=== PATIENT | female | born 1960 | race Caucasian/White ===

== ENCOUNTER 2016-09-21 12:28 | Emergency (ER) | payer BC ==
[2016-09-21] MEDS ORDERED: IPRATROPIUM-ALBUTEROL 3 ML NEB INHALATION STA (13:16)
--- NOTE | 2016-09-21 13:31 | ED ---
URI HPI - General Chief Complaint: Upper Respiratory Infection Stated Complaint: Congested/SOB Time Seen by Provider: 09/21/16 13:10 Source: patient, RN notes reviewed Mode of arrival: ambulatory Limitations: no limitations - History of Present Illness Initial Comments: 55-year-old female presents EMERGENCY DEPARTMENT CHIEF COMPLAINT COUGH AND CONGESTION FOR 6 DAYS. PATIENT STATES SYMPTOMS ARE PROGRESSIVELY GETTING WORSE. SHE STATES SHE NOTICED SOME WHEEZING, CHEST CONGESTION. SHE STATES IT STARTED JUST MORE SINUS CONGESTION. PATIENT STATES SHE CONCERNED THAT SHE MAY HAVE PNEUMONIA. PATIENT DENIES FEVER STATES THAT SHE'S HAD CHILLS, NIGHT SWEATS. DENIES ANY CHEST PAIN. SHE STATES SHE HAS HAD SOME SHORTNESS OF BREATH. PATIENT HAS NO KNOWN LUNG DISORDERS. PATIENT DENIES ANY relief with [id number] cough and cold medications. - Related Data Home Medications Medication Instructions Recorded Confirmed ALPRAZolam [Xanax] 0.5 mg PO Q8H PRN 09/21/16 09/21/16 Cholecalciferol (Vitamin D3) 10,000 unit PO DAILY 09/21/16 09/21/16 [Vitamin D3] Cyclobenzaprine [Flexeril] 10 mg PO Q8H PRN 09/21/16 09/21/16 Escitalopram [Lexapro] 10 mg PO DAILY 09/21/16 09/21/16 Hydrochlorothiazide [Hydrodiuril] 25 mg PO DAILY 09/21/16 09/21/16 L.acidoph,Paracasei, B.lactis 1 cap PO DAILY 09/21/16 09/21/16 [Probiotic] Levothyroxine Sodium [Synthroid] 50 mcg PO DAILY 09/21/16 09/21/16 Levothyroxine Sodium [Synthroid] 200 mcg PO DAILY 09/21/16 09/21/16 Propranolol HCl [Inderal LA] 120 mg PO DAILY 09/21/16 09/21/16 amLODIPine [Norvasc] 10 mg PO DAILY 09/21/16 09/21/16 Previous Rx's Medication Instructions Recorded Albuterol Sulfate [Proair Hfa] 1 - 2 puff INHALATION Q4HR PRN #1 09/21/16 inhaler Levofloxacin [Levaquin] 500 mg PO DAILY #10 tab 09/21/16 methylPREDNISolone [Medrol Dose 4 mg PO DIRECTED #1 pack 09/21/16 Pack] Allergies Allergy/AdvReac Type Severity Reaction Status Date / Time STEFANO Inhibitors Allergy Unknown Verified 09/21/16 13:18 Hxjadzm-Tua-Uie Reductase Allergy Unknown Verified 09/21/16 13:18 Inhibitor Review of Systems ROS Statement: Those systems with pertinent positive or pertinent negative responses have been documented in the HPI. ROS Other: All systems not noted in ROS Statement are negative. Past Medical History Past Medical History: No Reported History History of Any Multi-Drug Resistant Organisms: None Reported Past Surgical History: Hysterectomy Past Psychological History: No Psychological Hx Reported Smoking Status: Never smoker Past Alcohol Use History: None Reported, Occasional Past Drug Use History: None Reported General Exam Limitations: no limitations General appearance: alert, in no apparent distress Head exam: Present: atraumatic, normocephalic, normal inspection Eye exam: Present: normal appearance, PERRL, EOMI. Absent: scleral icterus, conjunctival injection, periorbital swelling ENT exam: Present: mucous membranes moist, TM's normal bilaterally, normal external ear exam, other (Rhinorrhea noted). Absent: normal oropharynx ( Postnasal drainage) Neck exam: Present: normal inspection, full ROM. Absent: tenderness, meningismus, lymphadenopathy Respiratory exam: Present: wheezes, rhonchi. Absent: normal lung sounds bilaterally, respiratory distress, rales, stridor Cardiovascular Exam: Present: regular rate, normal rhythm, normal heart sounds. Absent: systolic murmur, diastolic murmur, rubs, gallop, clicks Skin exam: Present: warm, dry, intact, normal color. Absent: rash Course Vital Signs 09/21/16 09/21/16 09/21/16 12:42 13:47 14:01 Temperature 97.7 F Pulse Rate 73 100 100 Respiratory 18 Rate Blood Pressure 140/74 O2 Sat by Pulse 98 Oximetry - Reevaluation(s) Reevaluation #1: 09/21/16 14:18 Patient was reevaluated after DuoNeb treatment. Patient's is much improved though she still has some remaining wheezing. Patient reports feeling better. Medical Decision Making - Medical Decision Making 55-year-old female presented emergency from her cold like symptoms for one week. Patient is x-ray shows no acute infiltrate though there is some rhonchi, wheezing noted. Patient be treated for possible pneumonia. Disposition Clinical Impression: Bronchitis, Sinusitis Disposition: HOME SELF-CARE Condition: Stable Instructions: Acute Bronchitis (ED) Additional Instructions: Please return to the Emergency Department if symptoms worsen or any other concerns. Prescriptions: Albuterol Sulfate [Proair Hfa] 1 - 2 puff INHALATION Q4HR PRN #1 inhaler PRN Reason: difficulty in breathing Levofloxacin [Levaquin] 500 mg PO DAILY #10 tab methylPREDNISolone [Medrol Dose Pack] 4 mg PO DIRECTED #1 pack Time of Disposition: 14:19
--- NOTE | 2016-09-21 13:48 | XR ---
EXAMINATION TYPE: XR chest 2V DATE OF EXAM: 09/21/2016 1:38 PM COMPARISON: NONE HISTORY: Cough FINDINGS: The lungs are clear and there is no pneumothorax, pleural effusion, or focal pneumonia. Mild cardio megaly noted. IMPRESSION: 1. Mild cardiomegaly.
[2016-09-21 14:39] VITALS: BP 142/90; PULSE 71; RESP 16; TEMP 99.3
== END 2016-09-21 14:42 | disposition home or self-care (01) ==
LOC: EC 12:28
DX: J40 Bronchitis, not specified as acute or chronic (principal); J32.9 Chronic sinusitis, unspecified; Z79.899 Other long term (current) drug therapy; Z88.8 Allergy status to other drugs, medicaments and biological substances
CPT/HCPCS: 71020; 94640; 99283

== ENCOUNTER → 2018-08-05 | Outpatient (CLI) | payer BC ==
--- NOTE | 2018-08-05 12:48 | CT ---
EXAMINATION TYPE: CT soft tissue neck w con DATE OF EXAM: 08/05/2018 HISTORY: Acute Lymphangitis COMPARISON: NONE CT DLP: 497.4 mGycm. Automated Exposure Control for Dose Reduction was Utilized. TECHNIQUE: CT scan of the neck is performed with IV Contrast, patient injected with 100 mL of Isovue 300, axial images are obtained, coronal and sagittal reformatted images are reviewed. FINDINGS: At the patient's palpable abnormality there is a 6 mm short axis occipital lymph node. This appears morphologically normal and overall nonenlarged. No greater than 1 cm short axis lymph nodes are seen within the neck. The largest lymph node is seen posterior to the submandibular gland on the left on image 46 measuring 8 mm in short axis. Airway: Airways patent. True and false vocal cords are unremarkable and symmetric. Vallecula and piri form sinuses are unremarkable. Fossa of Rosenmuller and torus tubarius are overall symmetric. Parotid/submandibular glands: Parotid and some and blood pool glands are unremarkable and symmetric. Carotid/Vascular Structures: There is a normal variant direct origin of the left vertebral artery fro m the aortic arch. Both vertebral arteries are diminutive but patent. Common carotid arteries, caroti d bulbs, and visualized portions of the internal carotid arteries in their cervical and below intracr anial portions are also patent. There is approximately 50% stenosis within the left carotid bulb in a short segment measuring 8 mm in length. Osseous Structures: There is a 1.3 cm mucosal retention cyst within the right maxillary sinus. Remain ing paranasal sinuses and mastoid air cells are well aerated. Bilateral dental fillings creates spray artifact and partially obscure structures surrounding visualization. Mild multilevel degenerative ch anges of the cervical spine are seen Other: The thyroid gland is small in size and atrophic. Lung apices are well aerated. IMPRESSION: 1. The patient's palpable abnormality corresponds to a nonenlarged morphologically normal-appearing l ymph node. No enlarged lymph nodes within the neck. 2. Incidentally noted approximately 50% short segment stenosis of the left carotid bulb measuring 8 m m in length. 3. Right mucosal retention cyst within the maxillary sinus measuring 1.3 cm.
== END | disposition home or self-care (01) ==
LOC: RADCTMAIN 07:29
PROVIDERS: ATTEND Family Medicine
DX: J34.1 Cyst and mucocele of nose and nasal sinus (principal); I65.22 Occlusion and stenosis of left carotid artery
CPT/HCPCS: 70491

== ENCOUNTER → 2019-03-24 | Outpatient (CLI) | payer BC ==
--- NOTE | 2019-03-24 14:10 | MR ---
EXAMINATION TYPE: MR knee LT wo con DATE OF EXAM: 03/24/2019 COMPARISON: None HISTORY: internal derangement L knee TECHNIQUE: Multiplanar, multisequence imaging of the left knee is performed without IV contrast. FINDINGS: MEDIAL MENISCUS: There is a complex tear of the medial meniscus with associated 4 mm meniscal extrusi on. This tear is predominantly longitudinal with radial component. There is also seen extending into the posterior root. LATERAL MENISCUS: There is a complex tear of the anterior horn of the lateral meniscus and extends in to the anterior and posterior meniscal root. Radial tear is seen in the posterior horn of the lateral meniscus at its free edge. CRUCIATE LIGAMENTS: The anterior and posterior cruciate ligaments are intact and unremarkable. COLLATERAL LIGAMENTS: The medial collateral ligament and lateral collateral ligament complex are inta ct. However there is high signal seen both superficial and deep to the medial collateral ligament rep resenting medial collateral ligament bursitis and low-grade sprain. EXTENSOR MECHANISM: Some increased signal is seen in the insertional fibers of the patellar tendon. E xtensor mechanism appears intact. EFFUSION: There is a small uncomplicated suprapatellar joint effusion. POPLITEAL CYST: There is a multiloculated popliteal cyst with some internal complexity dependently. This measures up to 9.7 cm in craniocaudal dimension. TRICOMPARTMENT SPACES: There are moderate tricompartmental osteophytes of medial compartment joint sp opal narrowing and patellofemoral compartment joint space narrowing. Subchondral cysts are seen within the tibial eminences CARTILAGE: There is full-thickness cartilaginous defect of the weightbearing surface of the lateral c ompartment with undermining measuring 6 x 5 mm. Partial-thickness cartilaginous defect is also seen o f the weightbearing surface more anteriorly measuring 1.4 cm cranial to the anterior horn of the late ral meniscus. There is a full-thickness cartilaginous defect of the weightbearing surface of the medi al compartment measuring 1.9 x 1.3 cm and of the tibial plateau measuring 1.0 x 1.3 cm medially and u p to 1.7 cm laterally. Underlying early subchondral cyst formation is seen of the medial femoral cond yle. In the femoral compartment there is near full-thickness chondral defect of the patellar apex and medial facet with chondral heterogeneity of the trochlear cartilage and lateral facet cartilage. BONE MARROW SIGNAL: Minimal bone marrow edema and early subchondral cystic formation deep to the full -thickness cartilaginous defect in the medial femoral condyle. OTHER: Small amount of subcutaneous edema is seen in the prepatellar and infrapatellar subcutaneous tissues. IMPRESSION: 1. Complex tear of the medial meniscus with associated 4 mm meniscal extrusion involving the anterior horn, meniscal body, posterior horn, and posterior root. 2. Complex tear of the lateral meniscus predominantly involving the anterior horn however there is in volvement of the anterior and posterior root and meniscal body. 3. Severe medial compartment chondrosis with full-thickness cartilaginous defect of the weightbearing surface measuring 1.9 x 1.3 cm and of the opposing tibial plateau measuring 1.3 x 1.0 cm medially an d 1.7 cm laterally. There is underlying bone marrow edema and early subchondral cyst formation. 4. Moderate chondrosis of the lateral and patellofemoral compartment as detailed above and moderate t ricompartmental arthrosis. 5. Small complex suprapatellar joint effusion indicative of underlying synovitis. 6. Insertional fiber tendinosis of the patellar tendon. 7. Findings indicative of low-grade sprain of the medial collateral ligament and MCL bursitis. 7. Elongated 9.7 cm multiloculated mildly complex popliteal cyst.
== END | disposition home or self-care (01) ==
LOC: RADMRIMAIN 11:28
PROVIDERS: ATTEND Family Medicine
DX: S83.232A Complex tear of medial meniscus, current injury, left knee, initial encounter (principal); S83.282A Other tear of lateral meniscus, current injury, left knee, initial encounter; M89.8X8 Other specified disorders of bone, other site; M22.42 Chondromalacia patellae, left knee; M17.12 Unilateral primary osteoarthritis, left knee; S83.412A Sprain of medial collateral ligament of left knee, initial encounter; M71.22 Synovial cyst of popliteal space [Baker], left knee

== ENCOUNTER → 2019-04-01 | Outpatient (CLI) | payer BC ==
--- NOTE | 2019-04-01 12:36 | CT ---
EXAMINATION TYPE: CT angio chest DATE OF EXAM: 04/01/2019 12:18 PM COMPARISON: HISTORY: Difficulty breathing when laying on left side. CT DLP: 575 mGycm Automated exposure control for dose reduction was used. CONTRAST: CTA scan of the thorax is performed with IV Contrast, patient injected with 100 mL of Isovue 370, pul monary embolism protocol. . FINDINGS: LUNGS: The lungs are grossly clear, there is no concerning parenchymal mass or nodule identified. T here is no pleural effusion or pneumothorax seen. The tracheobronchial tree is patent. MEDIASTINUM: There is suboptimal enhancement of the pulmonary artery particularly the secondary and d istal branches. Exam is essentially nondiagnostic. No central pulmonary embolism identified. Aorta of normal caliber. Coronary artery calcification noted. No pathologic lymphadenopathy. Report called to referring clinician. OTHER: There is reduced in attenuation correlate for hepatic steatosis. Hypertrophic and degenerativ e change of the vertebral column. IMPRESSION: 1. No central pulmonary embolism. Secondary and distal branches are limited by suboptimal enhancement . A pulmonary embolism in this distribution is not excluded. 2. Hepatic steatosis. 3. Coronary artery calcification.
--- NOTE | 2019-04-01 12:55 | US ---
EXAMINATION TYPE: US venous doppler duplex LE LT DATE OF EXAM: 04/01/2019 12:32 PM COMPARISON: NONE CLINICAL HISTORY: R06.02 shortness of breath, Edema R60.9. SIDE PERFORMED: Left TECHNIQUE: The lower extremity deep venous system is examined utilizing real time linear array sonog joseph with graded compression, doppler sonography and color-flow sonography. VESSELS IMAGED: External Iliac Vein (EIV) Common Femoral Vein Deep Femoral Vein Greater Saphenous Vein * Femoral Vein Popliteal Vein Small Saphenous Vein * Proximal Calf Veins (* superficial vessels) There is normal flow, compressibility, vascular waveforms. Left Leg: Negative for DVT Left side Underwood's cyst measuring 6.7 x 1.8 x 3.4 cm Preliminary results called to Dr. Damon at time of exam Grayscale and color Doppler imaging performed in the popliteal fossa IMPRESSION: There is a Underwood's cyst. No evident deep venous thrombosis at or above the left knee
== END ==
LOC: RADUSMAIN 11:43
PROVIDERS: ATTEND Family Medicine
DX: I25.10 Atherosclerotic heart disease of native coronary artery without angina pectoris (principal); M71.22 Synovial cyst of popliteal space [Baker], left knee
CPT/HCPCS: 93971; 71275; Q9967

== ENCOUNTER → 2019-04-14 | Outpatient (CLI) | payer BC ==
--- NOTE | 2019-04-15 12:00 | ECHOF ---
Referral Reason:R06.02 Shortness of breath MEASUREMENTS -------- HEIGHT: 160.0 cm WEIGHT: 104.3 kg BP: RVIDd: 2.8 cm (< 3.3) IVSd: 1.7 cm (0.6 - 1.1) LVIDd: 3.7 cm (3.9 - 5.3) LVPWd: 1.6 cm (0.6 - 1.1) IVSs: 1.8 cm LVIDs: 2.4 cm LVPWs: 1.8 cm LAESV Index (A-L): 19.15 ml/m IVSd: 1.7 cm (0.6 - 1.1) LVIDd: 5.7 cm (3.9 - 5.3) LVPWd: 1.5 cm (0.6 - 1.1) IVSs: 1.8 cm LVIDs: 4.0 cm LVPWs: 2.0 cm EDV(Teich): 159 ml ESV(Teich): 71 ml EF(Teich): 55 % %FS: 29 % SV(Teich): 88 ml Ao Diam: 2.9 cm (2.0 - 3.7) AV Cusp: 1.6 cm (1.5 - 2.6) LA Diam: 2.4 cm (2.7 - 3.8) MV EXCURSION: 12.148 mm (> 18.000) MV EF SLOPE: 69 mm/s (70 - 150) EPSS: 1.1 cm MV E Manuel: 0.80 m/s MV DecT: 271 ms MV A Manuel: 0.99 m/s MV E/A Ratio: 0.81 RAP: 5.00 mmHg RVSP: 32.45 mmHg FINDINGS -------- Sinus rhythm. This was a technically difficult study with suboptimal views. The left ventricular size is normal. There is moderate concentric left ventricular hypertrophy. O verall left ventricular systolic function is low-normal with, an EF between 50 - 55 %. The diastoli c filling pattern is normal for the age of the patient 13.10. The right ventricle is normal in size. Normal LA size by volume 22+/-6 ml/m2. The right atrial size is normal. xx ml of Lumason was utilized for enhancement of images. Interatrial and interventricular septum intact. The aortic valve was not well visualized. There is no evidence of aortic regurgitation. There is no evidence of aortic stenosis. No mitral regurgitation. Mild tricuspid regurgitation present. There is no evidence of pulmonary hypertension. The right v entricular systolic pressure, as measured by Doppler, is 32.45mmHg. The pulmonic valve was not well visualized. There is no pulmonic regurgitation present. The aortic root size is normal. IVC Not well visulized. There is no pericardial effusion. CONCLUSIONS -------- 1. Sinus rhythm. 2. This was a technically difficult study with suboptimal views. 3. The left ventricular size is normal. 4. There is moderate concentric left ventricular hypertrophy. 5. Overall left ventricular systolic function is low-normal with, an EF between 50 - 55 %. 6. The diastolic filling pattern is normal for the age of the patient 13.10 7. The right ventricle is normal in size. 8. Normal LA size by volume 22+/-6 ml/m2. 9. The right atrial size is normal. 10. xx ml of Lumason was utilized for enhancement of images. 11. Interatrial and interventricular septum intact. 12. The aortic valve was not well visualized. 13. There is no evidence of aortic regurgitation. 14. There is no evidence of aortic stenosis. 15. No mitral regurgitation. 16. Mild tricuspid regurgitation present. 17. There is no evidence of pulmonary hypertension. 18. The right ventricular systolic pressure, as measured by Doppler, is 32.45mmHg. 19. The pulmonic valve was not well visualized. 20. There is no pulmonic regurgitation present. 21. The aortic root size is normal. 22. IVC Not well visulized. 23. There is no pericardial effusion. FURNITURE MECHANIC: Jacquie Fields RDCS
== END | disposition home or self-care (01) ==
LOC: RADECHMAIN 15:39
PROVIDERS: ATTEND Family Medicine
DX: I07.1 Rheumatic tricuspid insufficiency (principal)
CPT/HCPCS: 93306; Q9950

== ENCOUNTER 2019-06-17 12:15 | Emergency (ER) | payer BC ==
[2019-06-17 12:25] VITALS: BP 105/73; PULSE 69; TEMP 97.4
[2019-06-17] MEDS ORDERED: KETOROLAC 30 MG/ML 1 ML VIAL IVP STA (12:53)
[2019-06-17 13:17] VITALS: RESP 18
[2019-06-17 13:25] LABS: Basophils # (A) 0.1 k/uL (0-0.2); Basophils % (A) 1 %; Eosinophils # (A) 0.2 k/uL (0-0.7); Eosinophils % (A) 4 %; HCT 36.4 % (34.0-46.0); HGB 12.3 gm/dL (11.4-16.0); Lymphocytes # (A) 1.4 k/uL (1.0-4.8); Lymphocytes % (A) 29 %; MCH 31.9 pg (25.0-35.0); MCHC 33.8 g/dL (31.0-37.0); MCV 94.3 fL (80.0-100.0); Mean Platelet Volume 5.7; Monocytes # (A) 0.4 k/uL (0-1.0); Monocytes % (A) 8 %; Neutrophils # (A) 2.6 k/uL (1.3-7.7); Neutrophils % (A) 55 %; Platelet Count 344 k/uL (150-450); RBC 3.86 m/uL (3.80-5.40); RDW 12.8 % (11.5-15.5); WBC 4.7 k/uL (3.8-10.6)
--- NOTE | 2019-06-17 13:29 | ED ---
General Adult HPI - General Chief complaint: Extremity Injury, Lower Stated complaint: Poss DVT-post op Time Seen by Provider: 06/17/19 12:29 Source: patient, RN notes reviewed Mode of arrival: ambulatory Limitations: no limitations - History of Present Illness Initial comments: 58-year-old female with a past medical history of asthma, migraines, hypert ension, thyroid disorder presents to the emergency department for left leg pain. Patient had total knee replacement on May 27 by a doctor in [facility]. States that she was not having any complications and was doing well at therapy. However patient states 3 days ago she had increasing pain on the lateral and posterior aspect of the left kidney that radiates up into her thigh as well as into her calf. States that she called her orthopedic surgeon and they were concerned for DVT. They recommended she come to the emergency department and patient could not drive down to [place] so came here. She is aware she is at a facility where her orthopedic surgeon does not practice. She denies fevers or chills. States it does hurt to bend her left knee.Patient has no other complaints at this time including shortness of breath, chest pain, abdominal pain, nausea or vomiting, headache, or visual changes. - Related Data Home Medications Medication Instructions Recorded Confirmed ALPRAZolam [Xanax] 0.5 mg PO Q8H PRN 09/21/16 06/17/19 Cyclobenzaprine [Flexeril] 10 mg PO Q6H PRN 09/21/16 06/17/19 Levothyroxine Sodium [Synthroid] 200 mcg PO DAILY 09/21/16 06/17/19 Propranolol HCl [Inderal LA] 120 mg PO DAILY 09/21/16 06/17/19 amLODIPine [Norvasc] 10 mg PO DAILY 09/21/16 06/17/19 RX: Aspirin 1 tab PO DAILY 06/25/17 06/17/19 Allopurinol [Zyloprim] 100 mg PO DAILY 06/17/19 06/17/19 Docusate [Colace] 100 mg PO BID 06/17/19 06/17/19 Doxycycline [Vibramycin] 100 mg PO DAILY 06/17/19 06/17/19 Escitalopram [Lexapro] 30 mg PO DAILY 06/17/19 06/17/19 Furosemide [Lasix] 40 mg PO DAILY 06/17/19 06/17/19 Gabapentin [Neurontin] 300 mg PO TID 06/17/19 06/17/19 Levothyroxine Sodium [Synthroid] 75 mcg PO DAILY 06/17/19 06/17/19 Potassium Chloride [Klor-Con 20] 20 meq PO DAILY 06/17/19 06/17/19 Pravastatin Sodium [Pravachol] 80 mg PO HS 06/17/19 06/17/19 RX: Losartan Potassium 100 mg PO DAILY 06/17/19 06/17/19 RX: Phentermine HCl 37.5 mg PO DAILY 06/17/19 06/17/19 oxyCODONE HCL/ACETAMINOPHEN 2 tab PO Q4HR PRN 06/17/19 06/17/19 [Percocet 10-325 mg] Allergies Allergy/AdvReac Type Severity Reaction Status Date / Time STEFANO Inhibitors Allergy "ALMOST Verified 06/17/19 12:55 FROM REACTION" Rmvvexn-Njb-Tok Reductase Allergy SEVERE Verified 06/17/19 12:55 Inhibitor HIGH B/P-DIZZINESS Sulfa (Sulfonamide Allergy Rash/Hives Verified 06/17/19 12:55 Antibiotics) Review of Systems ROS Statement: Those systems with pertinent positive or pertinent negative responses have been documented in the HPI. ROS Other: All systems not noted in ROS Statement are negative. Past Medical History Past Medical History: Asthma, Hypertension, Neurologic Disorder, Thyroid Disorder Additional Past Medical History / Comment(s): MIGRAINE History of Any Multi-Drug Resistant Organisms: None Reported Past Surgical History: Hysterectomy, Orthopedic Surgery Past Anesthesia/Blood Transfusion Reactions: No Reported Reaction Past Psychological History: No Psychological Hx Reported Smoking Status: Never smoker Past Alcohol Use History: None Reported Past Drug Use History: None Reported - Past Family History Mother Family Medical History: No Reported History General Exam Limitations: no limitations General appearance: alert, in no apparent distress Head exam: Present: atraumatic, normocephalic, normal inspection Eye exam: Present: normal appearance, PERRL, EOMI. Absent: scleral icterus, conjunctival injection, periorbital swelling ENT exam: Present: normal exam, mucous membranes moist Neck exam: Present: normal inspection, full ROM. Absent: tenderness, meningismus, lymphadenopathy Respiratory exam: Present: normal lung sounds bilaterally. Absent: respiratory distress, wheezes, rales, rhonchi, stridor Cardiovascular Exam: Present: regular rate, normal rhythm, normal heart sounds. Absent: systolic murmur, diastolic murmur, rubs, gallop, clicks Extremities exam: Present: tenderness (Tenderness noted to the anterior and posterior left knee as well as the proximal left calf and distal thigh.), normal capillary refill (Capillary refill less than 2 seconds, DP pulse 2+ in the left lower extremity.), joint swelling (Patient has mild edema of the left lower extremity in general however there is no erythema or increased warmth of the left knee. Surgical site appears intact and well healing.), calf tenderness. Absent: full ROM (Patient has 90 flexion of the left knee with full extension.) Course Vital Signs 06/17/19 06/17/19 12:22 13:16 Temperature 97.4 F L Pulse Rate 69 Respiratory 20 18 Rate Blood Pressure 105/73 O2 Sat by Pulse 99 Oximetry Medical Decision Making - Medical Decision Making Vitals are stable. Patient is afebrile. HPI and physical exam is documented. Physical exam is pertinent for 90 range of motion of the left knee. No sitting erythema of the left leg. There is mild edema present. No increased warmth of the left knee. No drainage from the site. No obvious evidence for infection. Patient is ambulatory on the left knee without difficulty. CBC CMP was obtained which was unremarkable. White blood cell count is normal at 4.7. Ultrasound of the left lower extremity shows no evident DVT at or above the left knee. There is a possible, located Underwood's cyst found to be 5.1 x 1.5 x 1.1 cm. There is an incidental lymph node visualized in the left groin 2.3 x 0.9 cm. 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 He did attempt to speak with Dr. Aguirre's however his office was unable to contact him or his registered medical transcriptionist. Discussed with patient that I recommend she wait here until we can speak with him to ensure appropriate treatment plan. However patient adamantly refuses this. Patient is actually agreeable to signing AMA paperwork at this time to leave. Patient will be discharged home to follow up with orthopedic surgeon. However I will still talk with Dr. Betancur when he calls back. I did speak with Haven from Dr Tong office who is aware of the situation and will follow up with patient. - Lab Data Result diagrams: 06/17/19 13:12 06/17/19 13:12 Lab Results 06/17/19 06/17/19 Range/Units 13:12 13:12 WBC 4.7 (3.8-10.6) k/uL RBC 3.86 (3.80-5.40) m/uL Hgb 12.3 (11.4-16.0) gm/dL Hct 36.4 (34.0-46.0) % MCV 94.3 (80.0-100.0) fL MCH 31.9 (25.0-35.0) pg MCHC 33.8 (31.0-37.0) g/dL RDW 12.8 (11.5-15.5) % Plt Count 344 (150-450) k/uL Neutrophils % 55 % Lymphocytes % 29 % Monocytes % 8 % Eosinophils % 4 % Basophils % 1 % Neutrophils # 2.6 (1.3-7.7) k/uL Lymphocytes # 1.4 (1.0-4.8) k/uL Monocytes # 0.4 (0-1.0) k/uL Eosinophils # 0.2 (0-0.7) k/uL Basophils # 0.1 (0-0.2) k/uL Sodium 141 (137-145) mmol/L Potassium 4.5 (3.5-5.1) mmol/L Chloride 105 (98-107) mmol/L Carbon Dioxide 31 H (22-30) mmol/L Anion Gap 5 mmol/L BUN 14 (7-17) mg/dL Creatinine 0.65 (0.52-1.04) mg/dL Est GFR (CKD-EPI)AfAm >90 (>60 ml/min/1.73 sqM) Est GFR (CKD-EPI)NonAf >90 (>60 ml/min/1.73 sqM) Glucose 95 (74-99) mg/dL Calcium 9.4 (8.4-10.2) mg/dL Total Bilirubin 0.5 (0.2-1.3) mg/dL AST 25 (14-36) U/L ALT 31 (9-52) U/L Alkaline Phosphatase 69 (38-126) U/L Total Protein 7.0 (6.3-8.2) g/dL Albumin 4.2 (3.5-5.0) g/dL Disposition Clinical Impression: Bakers cyst, Post-op pain Disposition: HOME SELF-CARE Condition: Good Instructions (If sedation given, give patient instructions): Knee Pain (ED) Additional Instructions: Please take Motrin and Tylenol for pain. Monitor for worsening swelling, redness, or warmth of the left knee and return if this occurs. Return if you have any fevers. Otherwise follow-up with your orthopedic surgeon as soon as possible. Is patient prescribed a controlled substance at d/c from ED?: No Referrals: Angeles Damon MD [Primary Care Provider] - 1-2 days Time of Disposition: 15:18
[2019-06-17 13:34] LABS: ALT 31 U/L (9-52); AST 25 U/L (14-36); African American GFR (CKD) >90 (>60 ml/min/1.73 sqM); Albumin 4.2 g/dL (3.5-5.0); Alkaline Phosphatase 69 U/L (38-126); Anion Gap 5 mmol/L; Blood Urea Nitrogen 14 mg/dL (7-17); Calcium 9.4 mg/dL (8.4-10.2); Carbon Dioxide 31 mmol/L (22-30); Chloride 105 mmol/L (98-107); Glucose 95 mg/dL (74-99); Potassium 4.5 mmol/L (3.5-5.1); Sodium 141 mmol/L (137-145); Total Bilirubin 0.5 mg/dL (0.2-1.3)
--- NOTE | 2019-06-17 14:10 | US ---
EXAMINATION TYPE: US venous doppler duplex LE LT DATE OF EXAM: 06/17/2019 1:48 PM COMPARISON: CLINICAL HISTORY: post op swelling pain. On aspirin. Total knee replacement on May 27. Pain. Redness. SIDE PERFORMED: Left TECHNIQUE: The lower extremity deep venous system is examined utilizing real time linear array sonog joseph with graded compression, doppler sonography and color-flow sonography. VESSELS IMAGED: External Iliac Vein (EIV) Common Femoral Vein Deep Femoral Vein Greater Saphenous Vein * Femoral Vein Popliteal Vein Small Saphenous Vein * Proximal Calf Veins (* superficial vessels) There is normal flow, compressibility, vascular waveforms. Left Leg: Negative for DVT. Posterior left knee, complex lesion visualized = 5.1 x 1.5 x 1.1 cm. Incidental lymph node visualized in left groin = 2.3 x 0.9 cm IMPRESSION: No evident deep venous thrombosis at or above the left knee. Possible complicated Underwood 's cyst.
== END 2019-06-17 15:20 | disposition home or self-care (01) ==
LOC: EC 12:15
DX: G89.18 Other acute postprocedural pain (principal); M71.22 Synovial cyst of popliteal space [Baker], left knee; E07.9 Disorder of thyroid, unspecified; J45.909 Unspecified asthma, uncomplicated; I10 Essential (primary) hypertension; Z79.82 Long term (current) use of aspirin; Z79.890 Hormone replacement therapy; Z79.899 Other long term (current) drug therapy; Z88.2 Allergy status to sulfonamides; Z88.8 Allergy status to other drugs, medicaments and biological substances
CPT/HCPCS: 36415; 80053; 85025; 93971; 99284; 96374; J1885

== ENCOUNTER → 2020-03-21 | Outpatient (CLI) | payer BC ==
--- NOTE | 2020-03-21 11:17 | CT ---
EXAMINATION TYPE: CT angio neck DATE OF EXAM: 03/21/2020 HISTORY: Carotid stenosis COMPARISON: CT soft tissue neck 08/05/2018 CT DLP: 437.1 mGycm. Automated Exposure Control for Dose Reduction was Utilized. TECHNIQUE: CTA scan of the neck is performed with IV Contrast, patient injected with 65 mL of Isovue 370, axial images are obtained, coronal and sagittal reformatted images are reviewed. Three-D recons tructed images are created on an independent workstation and reviewed. FINDINGS: Carotid/Vascular Structures: The transverse aorta, 4 super aortic branch vessels are patent. Common c arotid arteries, internal and external carotid arteries are patent. There is some mild atheromatous c hange involving the proximal internal carotid artery on the left is [id number]. No hemodynamic signif icant stenosis of the proximal internal carotid arteries by NASCET criteria. The left vertebral arter y is dominant. Other: Skull base is unremarkable. There is inflammatory change present in the right maxillary sinus. Degenerative disc changes are present in the visualized spine. IMPRESSION: No significant interval change is seen.
== END | disposition home or self-care (01) ==
LOC: RADCTMAIN 08:47
PROVIDERS: ATTEND Family Medicine
DX: I65.22 Occlusion and stenosis of left carotid artery (principal)
CPT/HCPCS: 70498; Q9967

== ENCOUNTER → 2020-09-22 | Outpatient (CLI) | payer BC ==
--- NOTE | 2020-09-22 12:52 | CT ---
EXAMINATION TYPE: CT brain wo/w con, CT sinus wo con DATE OF EXAM: 09/22/2020 COMPARISON: None. HISTORY: Occipital neuralgia and chronic sinusitis. Symptoms of headaches. CT DLP: 2386 (accession [id number]), 544 (accession [id number]) mGycm Automated exposure control for dose reduction was used. CONTRAST: CT scan of the head is performed without and with IV Contrast, patient injected with 100 ml mL of Iso maia 300. CT sinuses without contrast. FINDINGS: Noncontrast images show no acute intracranial hemorrhage or midline shift. Mild ventricular and sulca l prominence consistent with mild diffuse age-related cerebral atrophy . Postcontrast images show no suspicious enhancing mass. There is 1.7 x 1.5 cm mucous retention cyst or polyp in the anterior inferior right maxillary sinus. There is hypoplastic or nonformed right frontal sinus. No suspicious opacification or air-fluid level s. Remainder paranasal sinuses clear. The ostiomeatal complex is patent bilaterally on coronal images . IMPRESSION: Mild diffuse age-related cerebral atrophy. No suspicious enhancement. Chronic right maxil gilbert sinus disease. No acute sinusitis.
== END | disposition home or self-care (01) ==
LOC: RADCTMAIN 10:14
PROVIDERS: ATTEND Family Medicine
DX: G31.1 Senile degeneration of brain, not elsewhere classified (principal); J32.0 Chronic maxillary sinusitis
CPT/HCPCS: 70470; 70486; Q9967

== ENCOUNTER → 2020-11-17 | Outpatient (CLI) | payer BC | END | disposition home or self-care (01) | LOC: LABWHC1 17:01 | PROVIDERS: ATTEND Otolaryngology | DX: J06.9 Acute upper respiratory infection, unspecified (principal); R53.81 Other malaise | CPT/HCPCS: 87502; U0003; C9803 ==

== ENCOUNTER → 2021-05-18 | Outpatient (CLI) | payer BC ==
--- NOTE | 2021-05-18 11:54 | XR ---
Right ankle HISTORY: Pain for 8 months, M79.977 there are 3 views of the right ankle No comparisons There is hypertrophic change present at the level of the distal fibula on the right, there is a lucen cy is present at the distal fibula. There is soft tissue swelling present. Joint spaces and alignment are preserved. There is a plantar calcaneal spur. Enthesophyte present at the insertion of the Achil les tendon, there is marked thickening of the distal Achilles tendon. Degenerative changes are presen t at the intertarsal joints. IMPRESSION: Findings of the distal fibula may be due to remote trauma, difficult to exclude subacute fracture as there is a lucency, comparison with prior film would be of benefit if available. Correlat e for point tenderness. Probable Achilles tendinitis. There is osteophytic change.
== END | disposition home or self-care (01) ==
LOC: RADXRMAIN 10:45
PROVIDERS: ATTEND Family Medicine
DX: M25.571 Pain in right ankle and joints of right foot (principal)

== ENCOUNTER → 2021-07-09 | Outpatient (CLI) | payer BC ==
--- NOTE | 2021-07-11 04:24 | MR ---
EXAMINATION TYPE: MR ankle RT wo con DATE OF EXAM: 07/09/2021 COMPARISON: Radiograph 05/18/2021 HISTORY: 60-year-old female M76.61. Achilles tendinitis Rt. Ankle, pain and swelling TECHNIQUE: Multiplanar, multisequence images of the right ankle were obtained without IV contrast. FINDINGS: There is a 1.3 cm corticated ossicle below the distal fibula, likely a chronic ununited fracture frag ment. There is a small area of focal marrow edema within the ossicle suggesting continued abnormal mo vement in a subarticular arthrosis here. Degenerative subchondral signal change along the calcaneal cuboidal joint and navicular cuneiform salena nts. Additional degenerative signal change at the anterior subtalar joint. There appears to be at ashish st mild irregular thinning of articular cartilage along the posterior subtalar joint. There is severe thickening of the distal third Achilles tendon at the insertion measuring up to 1.8 c m with peritendinous edema, effusion within the retrocalcaneal bursa, and adjacent marrow edema espec ially at the lateral aspect of the posterior calcaneus. Areas of intrasubstance tear are present randall uring up to 8 mm long. No high-grade partial thickness or full thickness tear is identified at this t kaila. There is thickening at the origin of the medial band of the plantar fascia of the millimeters. Preserved signal within the sinus Tarsi. There seems to be an area of fatty proliferation measuring u p to 4.8 x 2.3 x 1.5 cm along the tarsal tunnel (sagittal series 401 image 6 and axial series 701 gallito ge 18) that seems to displace the posterior tibial nerve posteriorly and posterior tibial vasculature anteriorly. Tenosynovial fluid along the inframalleolar posterior tibial tendon. The lateral peroneal tendons oth erwise appear grossly intact. There is some tenosynovial fluid along the inframalleolar posterior tibial tendon as well as the flex or digitorum and flexor hallucis longus tendons but no abnormal tendon thickening seen. Deltoid ligament complex grossly intact. There is some increased signal along the inferolateral plant ar longitudinal ligament, sagittal series 501 image 10 that could represent a chronic injury or low-g rade sprain. Anterior extensor tendons appear grossly intact as does the syndesmosis. ATFL and CFL appear intact. There is some increased signal along the intact PTFL fibers suggesting a mild sprain. IMPRESSION: 1. Severe distal third Achilles tendinosis (tendon thickened up to 1.8 cm) with paratenonitis and sma ll interstitial tears measuring up to 8 mm long. No high-grade partial or full-thickness tear at this time. Reactive bone marrow edema within the posterior calcaneus. Recommend appropriate orthopedic ma nagement to prevent Achilles rupture in the future. 2. 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 There is some focal edema here s uggesting continued abnormal movement of this ossicle and the development of a degenerative pseudoart iculation. 3. Focal fatty proliferation measuring 4.8 x 2.3 cm along the tarsal tunnel seems to displace the pos terior tibial nerve posteriorly and the posterior tibial vasculature anteriorly. Correlate for any pa lpable findings that would suggest a lipoma here. 4. Scattered mild osteoarthritic change throughout the talonavicular and navicular cuneiform joints. 5. Thickening at the origin of the medial band of the plantar fascia at 8 mm can be seen with plantar fasciitis. Clinically correlate. 6. Scattered tenosynovial fluid along the inframalleolar peroneal tendons as well as the inframalleol ar medial flexor tendons could be physiologic/reactive or could represent a mild tenosynovitis.
== END | disposition home or self-care (01) ==
LOC: RADMRIMAIN 12:31
PROVIDERS: ATTEND Family Medicine
DX: M19.071 Primary osteoarthritis, right ankle and foot (principal); M76.61 Achilles tendinitis, right leg; M67.873 Other specified disorders of tendon, right ankle and foot; M66.871 Spontaneous rupture of other tendons, right ankle and foot

== ENCOUNTER → 2022-02-14 | Outpatient (CLI) | payer BC ==
[2022-02-14 17:23] LABS: Appearance,BF Cloudy; Color,BF Yellow
[2022-02-14 17:24] LABS: Nucleated Cells, Body Fluid 24 /uL
[2022-02-14 17:25] LABS: RBC, Body Fluid 868 /uL
[2022-02-14 17:29] LABS: Mononuclear WBC,Body Fluid 99 %; Polynuclear WBC,Body Fluid 1 %; Total Cells Counted,Body Fluid 100
[2022-02-14 22:35] LABS: Synovial Fld Crystals None Seen (None Seen)
== END | disposition home or self-care (01) ==
LOC: LABWHC1 14:46
PROVIDERS: ATTEND Orthopaedic Surgery
DX: T84.84XA Pain due to internal orthopedic prosthetic devices, implants and grafts, initial encounter (principal); M25.562 Pain in left knee; M25.561 Pain in right knee; Z96.652 Presence of left artificial knee joint; Y79.2 Prosthetic and other implants, materials and accessory orthopedic devices associated with adverse incidents
CPT/HCPCS: 36415; 85379; 85652; 86140; 87070; 87075; 87205; 89050; 89060

== ENCOUNTER → 2022-09-09 | Outpatient (CLI) | payer BC ==
--- NOTE | 2022-09-09 12:58 | CT ---
EXAMINATION TYPE: CT right knee - [facility] Protocol DATE OF EXAM: 09/09/2022 COMPARISON: None HISTORY: [facility] knee pre planning CT DLP: 1174 mGycm TECHNIQUE- CT of the right knee was performed. Preprocedural images. FINDINGS- Mild concentric narrowing and no evidence of erosive change or fracture. There is significant narrowi ng of the tricompartmental joint spaces with hypertrophic spurring. Correlate for severe osteoarthrit is. There is no evidence of erosive change. Soft tissue ossifications are seen posterior to the distal fe mur and proximal tibia. There is a popliteal fossa cyst that measuring a AP dimension 3.1 cm. Visualized ankle mortise maintained. Hypertrophic changes at the distal fibula. IMPRESSION: 1. Severe osteoarthritis of the knee. 2. There is a 3 cm popliteal fossa cyst.
== END | disposition home or self-care (01) ==
LOC: RADCTMAIN 08:57
PROVIDERS: ATTEND Orthopaedic Surgery
DX: M17.12 Unilateral primary osteoarthritis, left knee (principal); M71.22 Synovial cyst of popliteal space [Baker], left knee; M17.11 Unilateral primary osteoarthritis, right knee; Z68.41 Body mass index [BMI] 40.0-44.9, adult

== ENCOUNTER → 2022-09-09 | Outpatient (CLI) | payer BC ==
[2022-09-09 11:20] LABS: Partial Thromboplastin Time 22.8 sec (22.0-30.0); Prothrombin Time 10.4 sec (9.0-12.0)
[2022-09-09 14:54] LABS: HCT 43.7 % (37.2-46.3); HGB 14.2 g/dL (12.0-15.0); MCH 31.3 pg (27.0-32.0); MCHC 32.5 g/dL (32.0-37.0); MCV 96.3 fL (80.0-97.0); Mean Platelet Volume 9.7 fL (9.5-12.2); NRBC Per 100 WBC 0 /100 WBCS (0.0-0.0); Platelet Count 269 X 10*3/uL (140-440); RBC 4.54 X 10*6/uL (4.10-5.20); RDW 12.5 % (11.5-14.5); WBC 7.66 X 10*3/uL (4.50-10.00)
[2022-09-09 14:57] LABS: African American GFR (CKD) 107.6 (60.0-200.0); Albumin 4.6 g/dL (3.8-4.9); Anion Gap 10.6 mmol/L (10.00-18.00); BUN/Creat Ratio 14.86 Ratio (12.00-20.00); Blood Urea Nitrogen 10.4 mg/dL (9.0-27.0); Calcium 9.2 mg/dL (8.7-10.3); Carbon Dioxide 26.4 mmol/L (20.0-27.5); Globulin 2.3 g/dL (1.6-3.3); Non-African American GFR(CKD) 92.9 (60.0-200.0); Potassium 4.8 mmol/L (3.5-5.5); Total Bilirubin 0.5 mg/dL (0.30-1.20); Total Protein 6.9 g/dL (6.2-8.2)
[2022-09-09 17:07] LABS: Appearance,Urine Clear (Clear); Bilirubin,Urine Negative (Negative); Blood,Urine Negative (Negative); Color,Urine Yellow (Yellow); Ketones,Urine Negative (Negative); Nitrite,Urine Negative (Negative); Specific Gravity,Urine 1.015 (1.001-1.030); Urobilinogen,Urine 0.2 (0.2,1.0)
== END | disposition home or self-care (01) ==
LOC: LABPAT 09:55
PROVIDERS: ATTEND Orthopaedic Surgery
DX: Z01.812 Encounter for preprocedural laboratory examination (principal); M17.11 Unilateral primary osteoarthritis, right knee
CPT/HCPCS: 80053; 81003; 85027; 85610; 85730; 87070

== ENCOUNTER → 2022-09-25 | Outpatient (CLI) | payer BC ==
--- NOTE | 2022-09-25 11:47 | XR ---
EXAMINATION TYPE: XR chest 2V DATE OF EXAM: 09/25/2022 COMPARISON: 09/21/2016 TECHNIQUE: PA and lateral views submitted. HISTORY: Preop FINDINGS: The lungs are clear and there is no pneumothorax, pleural effusion, or focal pneumonia. Heart size normal and no overt failure. Osseous structures demonstrate hypertrophic and degenerative changes of the spine. AC joint arthropathy noted. IMPRESSION: 1. No acute process.
== END | disposition home or self-care (01) ==
LOC: RADXRMAIN 10:39
PROVIDERS: ATTEND Family Medicine
DX: Z01.818 Encounter for other preprocedural examination (principal); J45.30 Mild persistent asthma, uncomplicated
CPT/HCPCS: 71046